=== PATIENT | male | born 1940 | race Caucasian/White ===

== ENCOUNTER 2020-11-16 07:35 | Day surgery (SDC) | payer MEDICARE, MEDICAID ==
[~2020-11-16] VITALS: Ht 185.4 cm; Wt 90.7 kg
[~2020-11-16 07:35] MED LIST: ALBUAER3 IN; ASCO500T11 GT; ASPI-543 PO; ATO40T PO; CALC-440 PO; CHOL20009 PO; METO-158 PO; NITR0.4S29 SL; OMEG100062 PO; UMEC1AER IN; VALS40TA2 PO
[2020-11-16] MEDS ORDERED: IODIXANOL 320MG/ML 100ML BTL IV ONE (09:50)
[2020-11-16] MEDS ORDERED: LIDOCAINE 2%HCL (LOCAL ANESTH.) INJ 20ML MDV ONE (09:50)
[2020-11-16] MEDS ORDERED: ANGIOMAX 250 MG VIAL IV ONE (11:17)
[2020-11-16] MEDS ORDERED: MIDAZOLAM HCL 2MG/2ML 2ml VIAL (1mg/ml) ONE (11:17)
[2020-11-16] MEDS ORDERED: fentaNYL CITRATE 100 MCG/2 ML VL ONE (11:17)
[2020-11-16] MEDS ORDERED: SODIUM CHL 0.9% 0 ML ONE (11:18)
[2020-11-16] MEDS ORDERED: ceFAZolin 1GM VL ONE (11:35)
== END 2020-11-16 15:40 | disposition home or self-care (01) ==
LOC: CATH 07:35
PROVIDERS: ATTEND Internal Medicine Cardiovascular Disease
DX: I35.0 Nonrheumatic aortic (valve) stenosis (principal); I25.810 Atherosclerosis of coronary artery bypass graft(s) without angina pectoris; E11.9 Type 2 diabetes mellitus without complications; E78.5 Hyperlipidemia, unspecified; I25.2 Old myocardial infarction; J44.9 Chronic obstructive pulmonary disease, unspecified; I11.0 Hypertensive heart disease with heart failure; Z87.891 Personal history of nicotine dependence; Z86.19 Personal history of other infectious and parasitic diseases; Z87.898 Personal history of other specified conditions; Z79.82 Long term (current) use of aspirin; Z79.899 Other long term (current) drug therapy; Z20.822 Contact with and (suspected) exposure to COVID-19
CPT/HCPCS: 93461; C1751; C1760; C1769; C1894; J0690; J1644; J2250; J3010; Q9967; U0003; 99152; 99153